=== PATIENT | female | born 1980 | race Two or more races ===

== ENCOUNTER 2017-10-21 10:09 | Emergency (ER) | payer MEDICAID ==
[~2017-10-21] VITALS: Ht 162.6 cm; Wt 55.0 kg
[2017-10-21 10:10] VITALS: BP 145/93
[2017-10-21] MEDS ORDERED: IBUPROFEN 400MG TABLET PO ONE (11:00)
== END 2017-10-21 11:12 | disposition home or self-care (01) ==
LOC: ER 10:19
DX: R51 Headache (principal); M79.672 Pain in left foot; M54.6 Pain in thoracic spine; M25.512 Pain in left shoulder; V89.2XXA Person injured in unspecified motor-vehicle accident, traffic, initial encounter; Y93.89 Activity, other specified; Y92.89 Other specified places as the place of occurrence of the external cause; Y99.8 Other external cause status
CPT/HCPCS: 99283

== ENCOUNTER 2020-04-30 09:59 | Emergency (ER) | payer MEDICAID | END 2020-04-30 10:10 | disposition left against medical advice (07) | LOC: ER 09:59 | DX: Z53.21 Procedure and treatment not carried out due to patient leaving prior to being seen by health care provider (principal) ==

== ENCOUNTER 2022-03-16 09:02 | Emergency (ER) | payer MEDICAID ==
[~2022-03-16] VITALS: Ht 154.9 cm; Wt 82.0 kg
[2022-03-16 09:49] LABS: CLARITY URINE CLEAR (CLEAR); COLOR URINE YELLOW (YELLOW); KETONES URINE NEGATIVE (NEGATIVE); LEUKOCYTE ESTERASE URINE NEGATIVE (NEGATIVE); NITRITE URINE NEGATIVE (NEGATIVE); OCCULT BLOOD URINE NEGATIVE (NEGATIVE); PROTEIN URINE NEGATIVE (NEGATIVE); SPECIFIC GRAVITY URINE 1.021 (1.005-1.030); UROBILINOGEN URINE 0.2 E.U./dL (0.2-1.0)
[2022-03-16] MEDS ORDERED: DOXY100C5 MT (09:51)
[2022-03-16] MEDS ORDERED: METR-167 MT (09:51)
[2022-03-16] MEDS ORDERED: CEFTRIAXONE SODIUM 500 MG/VIAL IM ONE (10:00)
[2022-03-16 10:16] VITALS: BP 115/86
== END 2022-03-16 10:17 | disposition home or self-care (01) ==
LOC: ER 09:02
DX: N76.0 Acute vaginitis (principal)
CPT/HCPCS: 81003; 87210; 87491; 87591; 96372; 99283; J0696; Z7610

== ENCOUNTER 2022-11-25 11:55 | Emergency (ER) | payer MEDICAID ==
[~2022-11-25] VITALS: Ht 154.9 cm; Wt 68.0 kg
[~2022-11-25 11:55] MED LIST: DOXY100C5 MT; METR-167 MT
[2022-11-25 12:04] VITALS: BP 133/101
[2022-11-26] MEDS ORDERED: ACET-2708 MT (10:47)
[2022-11-26] MEDS ORDERED: ALBU6.7H3 INH (10:47)
== END 2022-11-25 18:50 | disposition left against medical advice (07) ==
LOC: ER 11:55
DX: Z53.21 Procedure and treatment not carried out due to patient leaving prior to being seen by health care provider (principal)

== ENCOUNTER 2022-11-26 09:50 | Emergency (ER) | payer MEDICAID ==
[~2022-11-26] VITALS: Ht 160 cm; Wt 75.0 kg
[2022-11-26 09:55] VITALS: BP 140/95
[2022-11-26] MEDS ORDERED: ACET-2708 MT (10:47)
[2022-11-26] MEDS ORDERED: ALBU6.7H3 INH (10:47)
== END 2022-11-26 11:03 | disposition home or self-care (01) ==
LOC: ER 09:50
DX: B34.9 Viral infection, unspecified (principal); Z13.9 Encounter for screening, unspecified; Z20.822 Contact with and (suspected) exposure to COVID-19
CPT/HCPCS: 81025; 87426; 93005; 99284; C9803

== ENCOUNTER 2024-01-03 22:01 | Emergency (ER) | payer MEDICAID ==
[~2024-01-03] VITALS: Ht 154.9 cm; Wt 78.0 kg
[~2024-01-03 22:01] MED LIST changes: +ACET-2708 MT; +ALBU6.7H3 INH
[2024-01-03 22:14] VITALS: BP 140/83; PULSE 83; RESP 17; TEMP 98; O2SAT 100
[2024-01-03 22:55] LABS: BASOPHILS % 0.4 % (0.0-2.0); DIFFERENTIAL COMMENT 0; EOSINOPHILS % 0.8 % (0.0-5.0); HEMOGLOBIN. 9.5 g/dL (12.0-16.0); LYMPHOCYTES % 40.1 % (20.0-50.0); MEAN CORPUSCULAR HEMOGLOBIN 22.8 pg (28.0-32.0); MEAN CORPUSCULAR HGB CONC 31.7 g/dL (31.0-37.0); MEAN CORPUSCULAR VOLUME 71.8 fL (81.0-99.0); MEAN PLATELET VOLUME 8.3 fl (7.4-10.4); NEUTROPHILS % 47.7 % (40.0-76.0); PLATELET 326 x1000/uL (130-400); RED BLOOD CELL COUNT 4.18 mill/uL (4.2-5.4); RED CELL DISTRIBUTION WIDTH 16.1 % (11.6-14.6); WHITE BLOOD COUNT 6.4 x1000/uL (4.5-11.0)
[2024-01-03 23:09] LABS: ALANINE AMINOTRANSFERASE 11 IU/L (10-49); ALBUMIN 3.9 g/dL (3.2-4.8); ASPARTATE AMINOTRANSFERASE 16 IU/L (<34); BILIRUBIN TOTAL 0.3 mg/dL (0.1-1.0); CALCIUM 8.8 mg/dL (8.7-10.4); CARBON DIOXIDE 28 mEq/L (21-32); CHLORIDE 106 mEq/L (98-107); CREATININE 0.8 mg/dL (0.6-1.0); GLUCOSE 95 mg/dL (70-105); POTASSIUM 3.7 mEq/L (3.5-5.1); PROTEIN TOTAL 7.2 g/dL (6.0-8.3); SODIUM 139 mEq/L (136-145); UREA NITROGEN BLOOD 11 mg/dL (9-23)
[2024-01-03 23:11] LABS: TROPONIN I HIGH SENSITIVITY < 4 ng/L (3.0-34)
[2024-01-04 00:03] LABS: CLARITY URINE CLEAR (CLEAR); COLOR URINE YELLOW (YELLOW); GLUCOSE URINE NEGATIVE (NEGATIVE); KETONES URINE TRACE (NEGATIVE); LEUKOCYTE ESTERASE URINE NEGATIVE (NEGATIVE); NITRITE URINE NEGATIVE (NEGATIVE); OCCULT BLOOD URINE NEGATIVE (NEGATIVE); PROTEIN URINE NEGATIVE (NEGATIVE); SPECIFIC GRAVITY URINE 1.025 (1.005-1.030)
== END 2024-01-04 01:16 | disposition left against medical advice (07) ==
LOC: ER 22:01
DX: N39.0 Urinary tract infection, site not specified (principal); Z53.21 Procedure and treatment not carried out due to patient leaving prior to being seen by health care provider
CPT/HCPCS: 36415; 71045; 80053; 81003; 84484; 85025; 93005; 99281

== ENCOUNTER 2025-02-05 20:41 | Emergency (ER) | payer MEDICAID ==
[~2025-02-05] VITALS: Ht 154.9 cm; Wt 74.0 kg
[2025-02-05 20:49] VITALS: O2SAT 97
[2025-02-05 20:54] VITALS: BP 145/79; PULSE 72; RESP 18; TEMP 36.8; O2SAT 100
[2025-02-05 21:34] LABS: BASOPHILS % 0.4 % (0.0-2.0); HEMATOCRIT. 36.5 % (36.0-48.0); HEMOGLOBIN. 11.7 g/dL (12.0-16.0); LYMPHOCYTES % 30.7 % (20.0-50.0); MEAN CORPUSCULAR HEMOGLOBIN 26.5 pg (28.0-32.0); MEAN CORPUSCULAR VOLUME 82.8 fL (81.0-99.0); MEAN PLATELET VOLUME 8.5 fl (7.4-10.4); MONOCYTES % 8.1 % (2.0-8.0); NEUTROPHILS % 58.8 % (40.0-76.0); PLATELET 335 x1000/uL (130-400); RED BLOOD CELL COUNT 4.41 mill/uL (4.2-5.4); RED CELL DISTRIBUTION WIDTH 14.8 % (11.6-14.6); WHITE BLOOD COUNT 8.4 x1000/uL (4.5-11.0)
[2025-02-05 21:42] LABS: CHLORIDE 105 mEq/L (98-107); SODIUM 140 mEq/L (136-145)
[2025-02-05 21:43] LABS: CALCIUM 9.5 mg/dL (8.7-10.4); CARBON DIOXIDE 27 mEq/L (21-32)
[2025-02-05 21:48] LABS: GLUCOSE 94 mg/dL (70-105); UREA NITROGEN BLOOD 13 mg/dL (9-23)
[2025-02-05 21:49] LABS: CREATININE 0.5 mg/dL (0.6-1.0)
[2025-02-05 21:52] LABS: TROPONIN I HIGH SENSITIVITY < 4 ng/L (3.0-34)
[2025-02-06 00:01] LABS: CLARITY URINE TURBID (CLEAR); COLOR URINE YELLOW (YELLOW); GLUCOSE URINE NEGATIVE (NEGATIVE); KETONES URINE NEGATIVE (NEGATIVE); LEUKOCYTE ESTERASE URINE 1+ (NEGATIVE); NITRITE URINE NEGATIVE (NEGATIVE); OCCULT BLOOD URINE 3+ (NEGATIVE); PH URINE 7.5 (4.5-8.0); PROTEIN URINE TRACE (NEGATIVE)
[2025-02-06 00:12] LABS: HCG SCREEN NEGATIVE
[2025-02-06] MEDS: IOHEXOL-350 100 ML BOTTLE ONE (01:58)
[2025-02-06 02:00] LABS: SQUAMOUS EPITHELIAL CELL URINE FEW /lpf (RARE/1+)
[2025-02-06 02:01] LABS: RBC URINE 0-2 /hpf (0-2); WBC URINE 0-2 /hpf (0-2)
[2025-02-06 02:03] LABS: AMORPHOUS SEDIMENT URINE 1+ /lpf; BACTERIA URINE NONE SEEN
== END 2025-02-06 02:26 | disposition home or self-care (01) ==
LOC: ER 20:41
DX: R07.2 Precordial pain (principal); Z98.890 Other specified postprocedural states; Z79.899 Other long term (current) drug therapy
CPT/HCPCS: 80048; 81003; 81025; 84703; 85025; 85379; 84484; 36415; 71045; 93005; 99285; 71275; Q9967; Z7610